=== PATIENT | female | born 1970 | race Caucasian/White ===

== ENCOUNTER → 2024-02-12 | Outpatient (CLI) | payer BC ==
[~2024-02-12] MED LIST: Iohexol 300 - 100 ML VIAL IV ONE
== END ==
LOC: EDBD 09:59 → RAD 09:59
DX: K80.20 Calculus of gallbladder without cholecystitis without obstruction (principal); K59.00 Constipation, unspecified; R19.7 Diarrhea, unspecified
CPT/HCPCS: Q9967

== ENCOUNTER → 2024-08-13 | Outpatient (CLI) | payer BC | LOC: RAD 08:08 | DX: K80.20 Calculus of gallbladder without cholecystitis without obstruction (principal); R22.2 Localized swelling, mass and lump, trunk ==